=== PATIENT | male | born 1965 | race Caucasian/White ===

== ENCOUNTER 2020-01-01 01:21 | Outpatient (CLI) | payer BC, SELFPAY ==
[2020-01-01 19:05] LABS: SARS-CoV-2 RNA PCR Negative
== END 2020-01-01 01:22 | disposition home or self-care (01) ==
PROVIDERS: PCP Internal Medicine; Visit Provider Internal Medicine Gastroenterology
DX: Z01.812 Encounter for preprocedural laboratory examination (principal); Z20.828 Contact with and (suspected) exposure to other viral communicable diseases
CPT/HCPCS: 87635; C9803; U0003

== ENCOUNTER 2020-01-03 01:23 | Day surgery (SDC) | payer BC, SELFPAY ==
[2020-01-01 11:01] VITALS: BMI 23.0
--- NOTE | 2020-01-02 08:08 | WPDANESEPPF ---
Anes - Initial Pre Proc Eval Procedure: Operation Date: 01/03/20 10:30 Proposed Procedures p Screening Colonoscopy - Clifford Bah MD Date/Time: 01/02/20 08:08 Surgeon: Clifford Bah MD Pre Op Diagnosis: neoplasm screening, hx of polyps Patient Data Age: 54 Gender: M Height: 1.83 m Weight: 77 kg Allergies Allergy/AdvReac Type Severity Reaction Status Date / Time No Known Allergies Allergy Verified 01/03/20 09:49 Home Medications Medication Instructions Recorded Confirmed Type albuterol [Ventolin] 90 mcg INHALATION PRN PRN 01/01/20 01/01/20 History atorvastatin 20 mg PO DAILY 01/01/20 01/03/20 History beclomethasone dipropionate [Qvar 2 inh INHALATION BID 01/01/20 01/01/20 History RediHaler] enalapril maleate 10 mg PO DAILY 01/01/20 01/01/20 History Patient hx anesthesia problems: none Family hx anesthesia problems: none PMFSH Past Medical History Medical History Anxiety Asthma Hyperlipidemia Hypertension Migraine Family History Family History Other Cerebrovascular accident Diabetes mellitus Family history of allergic disorder Family history of cardiovascular disease Hypertension Social History Social History Smoking status: Never smoker Smoking end date: 03/07/89 Alcohol intake: current Drinks per week: 0 Alcohol use details: 1 DRINK PER MONTH Substance use: never Substance use type: does not use Living arrangements: with family Spiritual care concerns: No Anes - Eval Final PreProcedure Day of Procedure 01/02/20 08:08 Patient weight: normal Heart: regular rate and rhythm Lungs: clear to auscultation and normal air movement Airway: Mallampati scale class 1 Neurological: alert and oriented Last oral intake: >/= 8 hours ASA classification: II Emergent: no Anesthetic plan: proceed Anesthesia type and monitoring: general GIVS and standard monitoring Informed Consent: The patient's anesthetic plan and its attendant risks and benefits were discussed with the patient/family/POA. Questions were solicited and answers provided to the satisfaction of the patient/family/POA.
[2020-01-03 09:51] VITALS: BP 154/99; PULSE 113; RESP 12; TEMP 36.1; O2SAT 98
--- NOTE | 2020-01-03 10:01 | P.HP_ITS ---
History of Present Illness History of Present Illness Consent: Risks, benefits, and alternatives have been discussed and questions answered. Patient agrees to proceed with procedure. Chief complaint: neoplasm screening, hx of polyps Narrative: Thuan Morales Jr. is a 54 year old W male referred for screening colonoscopy secondary history of colonic polyps last colonoscopy over 3 years ago. Patient also family history of colon cancer in his mother diagnosed in her early 50s. Patient also has had a history of diverticulitis. He has some mild crampy lower abdominal discomfort and a couple loose stools over the past week. [facility] Past Medical History Medical History Anxiety Asthma Hyperlipidemia Hypertension Migraine Family History Family History Other Cerebrovascular accident Diabetes mellitus Family history of allergic disorder Family history of cardiovascular disease Hypertension Social History Social History Smoking status: Never smoker Smoking end date: 03/07/89 Alcohol intake: current Drinks per week: 0 Alcohol use details: 1 DRINK PER MONTH Substance use: never Substance use type: does not use Living arrangements: with family Spiritual care concerns: No Meds Home Medications and Allergies Home Medications Medication Instructions Recorded Confirmed Type albuterol [Ventolin] 90 mcg INHALATION PRN PRN 01/01/20 01/01/20 History atorvastatin 20 mg PO DAILY 01/01/20 01/03/20 History beclomethasone dipropionate [Qvar 2 inh INHALATION BID 01/01/20 01/01/20 History RediHaler] enalapril maleate 10 mg PO DAILY 01/01/20 01/01/20 History Allergies Allergy/AdvReac Type Severity Reaction Status Date / Time No Known Allergies Allergy Verified 01/03/20 09:49 Vital Signs Vital Signs - 24 hr 01/03/20 09:51 Temperature 36.1 C L Pulse Rate 113 H Respiratory Rate 12 Blood Pressure 154/99 H Pulse Oximetry 98 Exam Const: Orientation/consciousness: patient oriented x3 Resp: Auscultation: clear to auscultation bilaterally Cardio: Rate: regular rate Rhythm: regular rhythm Heart sounds: no murmurs GI: GI Palp: Yes Soft to palpation, No Tenderness to palpation present (GI), Yes No hepatosplenomegaly present and No Palpable mass present Auscultation: normal bowel sounds Neuro: General: patient oriented x3 and no focal motor deficits Extrem: General: no pedal edema Assessment and Plan Additional Plan Screening colonoscopy secondary history of colonic polyps and family history of colon cancer in his mother
[2020-01-03] MEDS: LACTATED RINGERS 1,000 ML 150 ML IV CONT (10:03)
[2020-01-03] MEDS: SIMETHICONE ORAL SUSPENSION 20 MG/0.3 ML 30 ML BOTTLE 0.6 ML IRRIGATION (10:44)
[2020-01-03 10:55] VITALS: BP 104/71; PULSE 82; RESP 16; O2SAT 98
[2020-01-03 11:05] VITALS: BP 105/67; PULSE 80; RESP 16; O2SAT 98
[2020-01-03 11:15] VITALS: BP 110/68; PULSE 80; RESP 17; O2SAT 98
== END 2020-01-03 11:40 | disposition home or self-care (01) ==
PROVIDERS: PCP Internal Medicine; Visit Provider Internal Medicine Gastroenterology
PROC: 0DJD8ZZ Inspection of Lower Intestinal Tract, Via Natural or Artificial Opening Endoscopic (ICD-10-PCS; CPT 45378; principal; 2020-01-03 10:30)
DX: Z12.11 Encounter for screening for malignant neoplasm of colon (principal); K57.30 Diverticulosis of large intestine without perforation or abscess without bleeding; K64.8 Other hemorrhoids; Z86.010 Personal history of colon polyps; I10 Essential (primary) hypertension; E78.5 Hyperlipidemia, unspecified; J45.909 Unspecified asthma, uncomplicated; F41.9 Anxiety disorder, unspecified
CPT/HCPCS: 45378; J7120

== ENCOUNTER 2021-06-23 18:42 | Observation (INO) | payer BC, SELFPAY ==
--- NOTE | ~2021-06-23 | CT_ITS ---
EXAMINATION: CT abdomen pelvis wo con DATE: 06/23/2021 20:48 INDICATION: r/o diverticulitis TECHNIQUE: Computed tomography (CT) of the abdomen and pelvis was performed without intravenous contr ast. Automated exposure control and iterative reconstruction technique were employed. The dose-length product was 394.66 mGy-cm. COMPARISON: 09/26/2017. FINDINGS: Lower thorax: Mild coronary artery calcification. Small hiatal hernia/esophageal diverticulum. Liver: Left lobe cyst. Biliary/Gallbladder: Gallbladder is normal. No bile duct dilation. Spleen: Normal. Pancreas: No mass or duct dilation. Adrenals:No mass. Kidneys: Bilateral stranding. Left midpole hypodensity, too small to characterize but statistically m ost likely represents a cyst. Punctate bilateral nonobstructing calculi. No hydronephrosis. GI tract: Multiple loops of fluid-filled dilated small bowel in the mid and right abdomen, with trans ition points between normal and abnormal bowel in the right lower quadrant. No large bowel dilation. Multiple diverticuli without diverticulosis. Normal appendix. Mesentery/Peritoneum: No ascites, mass, or free air. Innumerable prominent but subcentimeter mesenter ic lymph nodes. Retroperitoneum: No mass. Pelvis: Prostatomegaly.. Bones/Soft Tissues: Soft tissues and body wall unremarkable. No acute osseous finding. Additional Findings: None. IMPRESSION: Distal small bowel obstruction, site of obstruction suspected to be the right lower quadrant, without a specific mass or obstructing lesion identified. No CT evidence of diverticulitis. Reviewed, dictated and finalized at location K. IMPRESSION: Distal small bowel obstruction, site of obstruction suspected to be the right l ower quadrant, without a specific mass or obstructing lesion identified. No CT evidence of diverticulitis.
--- NOTE | ~2021-06-23 | XR_ITS ---
EXAMINATION: XR abdomen/kub 1V EXAM DATE: 06/24/2021 05:59 INDICATION: Small bowel ileus versus obstruction. TECHNIQUE: Frontal projection(s) of the abdomen for interpretation. Correlation is made to CT abdomen pelvis from yesterday. FINDINGS: There is expected amount of colonic stool and gas. No small bowel dilation, nonobstructiv e bowel gas pattern. There are no suspicious calcifications identified. There is no organomegaly suspected. There are mild bony degenerative changes. IMPRESSION: Unremarkable abdomen x-ray exam. Consider water-soluble small bowel follow-through. Reviewed, dictated and finalized at location A. IMPRESSION: Unremarkable abdomen x-ray exam. Consider water-soluble small claudia l follow-through.
--- NOTE | ~2021-06-23 | XR_ITS ---
EXAMINATION: XR sm bowel follow through WS EXAM DATE: 06/24/2021 11:38 INDICATION: Possible small bowel obstruction. TECHNIQUE: Audio Engineer radiograph was acquired. Omnipaque/water soluble solution administered for small aisha wel exam performed by radiologist Isak Hampton M.D.. Spot images of the terminal ileum were acquired. Pulsed dose reduction fluoroscopy was used with fluoroscopic time of 0.1 minutes. The DAP for this procedure was 4.9 Gycm2. A total of 15 images obtained for the exam. Correlation is made to CT scan ner from 06/23/2021. FINDINGS: Ileal and jejunal fold patterns are normal. Mildly dilated ileum, probably ileus. There i s no small bowel wall thickening or mass effect displacing small bowel. There are no intraluminal fi lling defects identified. Terminal ileum is normal in appearance. Contrast reached the colon 15-30 minutes, rapid transit time. IMPRESSION: Mildly dilated ileum with rapid transit time. Consider gastroenteritis. Reviewed, dictated and finalized at location A. IMPRESSION: Mildly dilated ileum with rapid transit time. Consider gastroenter itis.
[2021-06-23 18:45] VITALS: BP 149/91; PULSE 106; RESP 19; TEMP 36.6; O2SAT 98
--- NOTE | 2021-06-23 20:39 | ED.ABDPAIN ---
HPI - Abdominal Pain General Chief Complaint: Abdominal Pain Stated Complaint: abdominal pain with n/v/d Time Seen by Provider: 06/23/21 20:30 History of Present Illness HPI narrative: 56-year-old male presents the emergency room with a cute onset of nausea/vomiting and diarrhea accompanied with lower abdominal pain since yesterday morning. Patient describes the pain as a cramping sensation. Patient has a history of diverticulitis. Patient denies dysuria. Patient denies fever. Patient denies any alleviating or aggravating factors. Related Data Home Medications Medication Instructions Recorded Confirmed Qvar RediHaler 2 inh INHALATION BID 01/01/20 01/01/20 albuterol 90 mcg INHALATION PRN PRN 01/01/20 01/01/20 atorvastatin 20 mg PO DAILY 01/01/20 01/03/20 enalapril maleate 10 mg PO DAILY 01/01/20 01/01/20 Allergies Allergy/AdvReac Type Severity Reaction Status Date / Time No Known Allergies Allergy Verified 01/03/20 09:49 Review of Systems Review of Systems: CONSTITUTIONAL: Denies fever, chills, or sweats. EYES: Denies visual changes, redness, or discharge. ENT: Denies rhinorrhea, congestion, sore throat, or otalgia. CARDIOVASCULAR: Denies chest pain, palpitations, or edema. RESPIRATORY: Denies cough or dyspnea. GASTROINTESTINAL: Reports abdominal pain, nausea, vomiting, or diarrhea. GENITOURINARY: Denies dysuria or hematuria. SKIN: Denies rash or itching. MUSCULOSKELETAL: Denies back pain, joint pain, or myalgia. NEUROLOGIC: Denies headache, numbness, dizziness, or weakness. PSYCHIATRIC: Denies anxiety or depression. [facility] Past Medical History Medical History Anxiety Asthma Hyperlipidemia Hypertension Migraine Surgical History Surgical History (Updated 06/23/21 @ 23:20 by Pam Lucas APRN) No pertinent past surgical history Family History Family History Other Cerebrovascular accident Diabetes mellitus Family history of allergic disorder Family history of cardiovascular disease Hypertension Social History Social History Smoking status: Never smoker Smoking end date: 03/07/89 Alcohol intake: current Drinks per week: 0 Alcohol use details: 1 DRINK PER MONTH Substance use: never Substance use type: does not use Spiritual care concerns: No Exam Narrative: GENERAL: Well-appearing, well-nourished, and in no acute distress. HEAD: Normocephalic, atraumatic. EYES: PERRLA and EOMI. CHEST: Clear to auscultation. No respiratory distress. No wheezes rales or rhonchi HEART: Regular rate and rhythm. No murmur heard. Normal peripheral pulses. ABDOMEN: Soft, generalized tenderness, normal bowel sounds, no guarding EXTREMITIES: Normal range of motion. No edema. SKIN: Warm, dry, no rash. NEURO: No focal deficits. Alert and oriented x3. PSYCH: Normal mood and affect. Course Vital Signs Vital signs: Vital Signs Temperature 36.6 C 06/23/21 18:45 Pulse Rate 106 H 06/23/21 18:45 Respiratory Rate 19 06/23/21 18:45 Blood Pressure 149/91 H 06/23/21 18:45 Pulse Oximetry 98 06/23/21 18:45 Temperature 36.6 C 06/23/21 18:45 Pulse Rate 106 H 06/23/21 18:45 Respiratory Rate 19 06/23/21 18:45 Blood Pressure 149/91 H 06/23/21 18:45 Pulse Oximetry 98 06/23/21 18:45 MDM - Abdominal Pain Lab Data Result diagrams: 06/23/21 20:55 06/23/21 20:55 Labs: Lab Results 06/23/21 06/23/21 06/23/21 Range/Units 20:55 20:55 21:44 WBC 7.9 (4.5-10.0) K/mm3 RBC 5.55 (4.6-6.20) M/mm3 Hgb 16.7 (14.0-18.0) g/dL Hct 50.6 (42.0-52.0) % MCV 91.2 (80-100) fl MCH 30.1 (26-34) pg MCHC 33.0 (32-36) g/dl RDW 12.4 (11.5-14.5) % Plt Count 224 (150-375) k/mm3 MPV 9.4 (7.4-10.4) fl Immature Gran % (Auto) 0.4 (0-0.5) %
[2021-06-23] MEDS: SODIUM CHLORIDE 0.9% IV 1,000 ML 999 ML IV CONT (20:56)
[2021-06-23] MEDS: ONDANSETRON INJ 4 MG/2 ML VIAL IV PUSH (20:56)
[2021-06-23 21:02] LABS: Basophils Percent Auto 0.3 % (0.2-1.2); Eosinophils Percent Auto 0.1 % (0-4.4); Hematocrit 50.6 % (42.0-52.0); Hemoglobin 16.7 g/dL (14.0-18.0); Immature Granulocyte Absolute 0.03 K/mm3 (0.00-0.031); Immature Granulocyte Percent A 0.4 % (0-0.5); Lymphocytes Absolute Auto 0.79 K/mm3 (0.9-3.2); Mean Corpuscular Hemoglobin 30.1 pg (26-34); Mean Corpuscular Volume 91.2 fl (80-100); Mean Platelet Volume 9.4 fl (7.4-10.4); Monocytes Absolute Auto 0.9 K/mm3 (0.1-0.6); Monocytes Percent Auto 10.8 % (2.6-8.5); Neutrophils Absolute Auto 6.2 K/mm3 (1.3-6.7); Neutrophils Percent Auto 78.4 % (45.5-73.1); Platelet Count Result 224 k/mm3 (150-375); Red Blood Count 5.55 M/mm3 (4.6-6.20); Red Cell Distribution Width 12.4 % (11.5-14.5); White Blood Count 7.9 K/mm3 (4.5-10.0)
[2021-06-23 21:32] LABS: Alanine Aminotransferase 30 U/L (4-50); Albumin Level 5.1 g/dL (3.5-5.1); Alkaline Phosphatase 72 U/L (38-126); Anion Gap 10 mmol/L (8-16); Aspartate Amino Transferase 36 U/L (17-59); Blood Urea Nitrogen 14 mg/dL (9-20); Calcium 9.3 mg/dL (8.4-10.2); Carbon Dioxide 27 mmol/L (22-30); Chloride 96 mmol/L (98-107); Estimated CRCL calculation 81 ml/min; Estimated Glomerular Filt Rate > 60; Glucose 116 mg/dL (65-110); Potassium 4.1 mmol/L (3.4-5.0); Sodium 133 mmol/L (137-145)
[2021-06-23 21:59] LABS: Lactic Acid Reflex 0.8 mmol/L (0.7-2.1)
--- NOTE | 2021-06-23 23:17 | PM.IMHP ---
H&P: HPI History of Present Illness Date/Time: Patient was placed observation status for expected length of stay less than 23 hours for management, will plan to re-evaluate tomorrow for improvement. 06/23/21 23:17 Chief Complaint: Abdominal pain Narrative: Mr. Morales is a 56-year-old gentleman who presented emergency room with complaints of diarrhea, nausea, vomiting, and abdominal pain. Patient states that last evening around 2100 he began having diarrhea and then had a stool every hour until 4:00 a.m.. Patient states he was having pain across his lower abdomen that he described as a cramping sensation. Patient states he does have a history of diverticulitis and he thought that this was the problem he was having an decided to come to emergency room for further evaluation. Patient denies any fever or chills at home. Patient states that he has passed gas 1 time while in the emergency room. Patient denies any chest pain, shortness breast, lightheadedness, dizziness, syncopal, or near syncopal episodes. Patient denies any dysuria, hematuria, frequency, or urgency. Patient denies having any extensive abdominal surgeries states the only surgery he has had a his a colonoscopy. Patient states he has a known history of hypertension, dyslipidemia, and asthma. Patient states he has been taking all medications without any difficulty up until today. Review of Systems Review of Systems: A 12 point review of systems was completed patient all pertinent positive and negative per HPI the remainder are unremarkable. [facility] Past Medical History Medical History (Updated 06/23/21 @ 23:21 by Pam Lucas APRN) Anxiety Asthma Hyperlipidemia Hypertension Migraine Surgical History Surgical History (Updated 06/23/21 @ 23:20 by Pam Lucas APRN) No pertinent past surgical history Family History Family History Other Cerebrovascular accident Diabetes mellitus Family history of allergic disorder Family history of cardiovascular disease Hypertension Social History Social History Smoking status: Never smoker Smoking end date: 03/07/89 Alcohol intake: current Drinks per week: 0 Alcohol use details: 1 DRINK PER MONTH Substance use: never Substance use type: does not use Spiritual care concerns: No Meds Home Medications and Allergies Home Medications Medication Instructions Recorded Confirmed Type Qvar RediHaler 2 inh INHALATION BID 01/01/20 01/01/20 History albuterol 90 mcg INHALATION PRN PRN 01/01/20 01/01/20 History atorvastatin 20 mg PO DAILY 01/01/20 01/03/20 History enalapril maleate 10 mg PO DAILY 01/01/20 01/01/20 History Allergies Allergy/AdvReac Type Severity Reaction Status Date / Time No Known Allergies Allergy Verified 01/03/20 09:49 Vital Signs Vital Signs - 24 hr 06/23/21 18:45 Temperature 36.6 C Pulse Rate 106 H Respiratory Rate 19 Blood Pressure 149/91 H Pulse Oximetry 98 Exam Narrative: Constitutional: Patient is well-nourished in no acute distress. Patient is alert and oriented x3 HEENT: Moist mucous membranes. No scleral icterus. No lymphadenopathy. Neck: No carotid bruits noted no JVD noted Lungs: Lung sounds are clear to auscultation bilaterally. No accessory muscle use. No rhonchi, rales, or wheezes noted. Cardiovascular: Apical pulse is regular rate and rhythm. S1-S2 noted, no S3 or S4 noted. No gallops, murmurs, or rubs noted. Abdomen: Soft and round. Patient complains of mild tenderness to right upper quadrant with deep palpation. No palpable masses. Patient's bowel sounds are hyperactive at this time. Extremities: No edema. Nontender. Skin: No rashes or lesions. Warm and dry. Skin is intact. Neurological: No focal neurological deficits. Cranial nerves II-XII grossly intact. Psychiatric: Cooperative, appropriate mood, and af
[2021-06-24] VITALS (8 sets, daily range): BP systolic 115–143; BP diastolic 72–86; PULSE 70–80; RESP 14–18; TEMP 35.9–36.6; O2SAT 97–100; BMI 23.6
--- NOTE | 2021-06-24 01:46 | ADMGEN ---
This patient, Thuan Morales Jr., was admitted to Medical Room 243-01. Patient/family oriented to hospital policies and general routines including ID bracelet, bed and alarms, visiting hours, pain management, procedures, bathroom and other care routines, personal items, smoking policy, room service/diet, and visiting hours. Information on how to activate the Rapid Response Team has been discussed. Patient/Family are encouraged to report perceived risks to care and to ask questions if they do not understand what they are told or what they should do.
[2021-06-24] MEDS: SODIUM CHLORIDE 0.9% IV 1,000 ML 125 ML IV CONT ×2 (02:08→11:45)
[2021-06-24 04:50] LABS: Basophils Percent Auto 0.4 % (0.2-1.2); Eosinophils Percent Auto 0.4 % (0-4.4); Hematocrit 43.3 % (42.0-52.0); Hemoglobin 14.5 g/dL (14.0-18.0); Immature Granulocyte Absolute 0.02 K/mm3 (0.00-0.031); Immature Granulocyte Percent A 0.4 % (0-0.5); Lymphocytes Absolute Auto 0.97 K/mm3 (0.9-3.2); Lymphocytes Percent Auto 18.5 % (18.3-44.2); Mean Corpuscular HGB Conc 33.5 g/dl (32-36); Mean Corpuscular Hemoglobin 29.8 pg (26-34); Mean Corpuscular Volume 88.9 fl (80-100); Mean Platelet Volume 9.5 fl (7.4-10.4); Monocytes Absolute Auto 0.8 K/mm3 (0.1-0.6); Monocytes Percent Auto 15.5 % (2.6-8.5); Neutrophils Absolute Auto 3.4 K/mm3 (1.3-6.7); Neutrophils Percent Auto 64.8 % (45.5-73.1); Platelet Count Result 188 k/mm3 (150-375); Red Blood Count 4.87 M/mm3 (4.6-6.20); Red Cell Distribution Width 12.4 % (11.5-14.5); White Blood Count 5.2 K/mm3 (4.5-10.0)
[2021-06-24 05:01] LABS: Anion Gap 8 mmol/L (8-16); Blood Urea Nitrogen 13 mg/dL (9-20); Calcium 8.3 mg/dL (8.4-10.2); Carbon Dioxide 23 mmol/L (22-30); Chloride 102 mmol/L (98-107); Estimated CRCL calculation 89 ml/min; Estimated Glomerular Filt Rate > 60; Glucose 90 mg/dL (65-110); Magnesium 2.2 mg/dL (1.6-2.3); Potassium 3.8 mmol/L (3.4-5.0); Sodium 133 mmol/L (137-145)
[2021-06-24 05:49] LABS: Appearance Urine Clear (Clear); Bilirubin Urine Negative (Negative); Blood Urine 1+ (Negative); Color Urine Yellow (Yellow); Glucose Urine UA Negative (Negative); Ketones Urine 1+ mg/dL (Negative); Leukocyte Esterase Ur Negative LEU/UL (Negative); Nitrate Urine Negative (Negative); Protein Urine Negative (Negative); Specific Grav Ur 1.025 (1.001-1.035); Urobilinogen Urine 0.2 mg/dL (<2.0); pH Urine 5.5 (5.0-9.0)
[2021-06-24 05:51] LABS: Add Urine Microscopic? YES
[2021-06-24 05:52] LABS: Mucus Urine Rare /lpf; RBC Urine 0-2 /hpf (0-2); Squamous Epithelial Cell Urine Rare /hpf (Few); WBC Urine 0-3 /hpf
--- NOTE | 2021-06-24 09:45 | PM.IMPN ---
Progress Note: A&P Assessment and Plan (1) SBO (small bowel obstruction): Code(s): K56.609 - Unspecified intestinal obstruction, unspecified as to partial versus complete obstruction Status: Acute Assessment and Plan: Abd/Pel CT: Distal small bowel obstruction, site of obstruction suspected to the RLQ, without mass Abd Xray (06/24/21): Unremarkable abdomen x-ray exam. Consider water-soluble small bowel follow-through. Small bowel follow through: Mildly dilated ileum with rapid transit time. Consider gastroenteritis. General surgery consulted appreciate any further recommendations Consider NG tube if symptoms advance to vomiting Encourage activity Anti-emetic: Zofran 4mg IV Q6H PRN IV fluids: 125ml/hr NS Clear liquids with advancement as tolerated Consider pain medications (2) Hypertension: Code(s): I10 - Essential (primary) hypertension Status: Acute Assessment and Plan: BP 129/76 Hold PO enalapril 10mg PO daily PRN hydralazine with parameters while NPO Restart oral medications as indicated Trend BP Adjust therapy as indicated (3) Hyperlipidemia: Code(s): E78.5 - Hyperlipidemia, unspecified Status: Inactive Assessment and Plan: Hold home medications while NPO Restart medications as indicated LFTs are within normal range Time Spent With Patient Time with patient: Greater than 35 minutes Subjective Date/time seen: 06/24/21 0945 Interval history: 06/23/21 23:17 Narrative: Mr. Morales is a 56-year-old gentleman who presented emergency room with complaints of diarrhea, nausea, vomiting, and abdominal pain. Patient states that last evening around 2100 he began having diarrhea and then had a stool every hour until 4:00 a.m.. Patient states he was having pain across his lower abdomen that he described as a cramping sensation. Patient states he does have a history of diverticulitis and he thought that this was the problem he was having an decided to come to emergency room for further evaluation. Patient denies any fever or chills at home. Patient states that he has passed gas 1 time while in the emergency room. Patient denies any chest pain, shortness breast, lightheadedness, dizziness, syncopal, or near syncopal episodes. Patient denies any dysuria, hematuria, frequency, or urgency. Patient denies having any extensive abdominal surgeries states the only surgery he has had a his a colonoscopy. Patient states he has a known history of hypertension, dyslipidemia, and asthma. Patient states he has been taking all medications without any difficulty up until today. 06/24/21 0945 Patient is doing well today. Patient went for small-bowel follow-through and no obstruction was noted. Patient denies any abdominal pain. Chest pain, shortness of breath, nausea, vomiting, sweats, fevers, chills. Patient walks independently and has no complaints. Patient was started on clear liquids and advance diet as tolerated. Review of Systems Review of Systems: All systems reviewed & are unremarkable except as noted in HPI and below Exam Const: General: cooperative, healthy appearing, no acute distress, well developed, alert and awake Nutritional Appearance: well nourished Orientation/consciousness: patient oriented x3 Limitations: no limitations HENMT: Head: normal to inspection Ears: hearing grossly normal bilaterally General nose exam: Normal external nose present Mouth: Yes Normal oral and palatal mucosa present, Yes lip normal and Yes tongue normal Teeth and gingiva: abnormal tooth and associated gingiva and poor dentition Eyes: General: appearance normal, both eyes and all related structures Neck: Neck: normal visual inspection, full ROM, trachea midline and supple Chest: Chest palpation & inspection: normal inspection of the chest Resp: Effort & Inspection: normal respiratory effort and able to speak in complete sentences Auscultation:
--- NOTE | 2021-06-24 10:18 | PM.CNGS ---
Assessment and Plan Assessment and plan (1) SBO (small bowel obstruction): Code(s): K56.609 - Unspecified intestinal obstruction, unspecified as to partial versus complete obstruction Status: Acute Assessment and Plan: CT scan reviewed and discussed with the patient in detail. There is evidence of a small bowel obstruction. The patient has no history of abdominal surgeries, although he does have a history of diverticulitis that could theoretically cause some adhesions. His presentation and complaints over the past few days are more consistent with possibly gastroenteritis with an ileus, although there is a transition point noted on CT. He has shown significant clinical improvement. Abdominal pain and nausea have subsided. His abdominal exam is benign. He is passing lots of gas and his plain films this morning showed a normal bowel gas pattern. We will go ahead with a Gastrografin small bowel follow through today to further evaluate the small bowel obstruction. If the contrast moves through to the colon without any obstruction, then we will start a clear liquid diet. For now, will continue NPO status and IV fluids. Will monitor with serial abdominal exams. Thank you for allowing us to see the patient in consultation and we will continue to follow along with you. (2) Hypertension: Code(s): I10 - Essential (primary) hypertension Status: Acute (3) Asthma: Code(s): J45.909 - Unspecified asthma, uncomplicated Status: Inactive Additional Plan I have discussed the patient's case and plan of care with Dr. Garcia. History of Present Illness Consult details Consult date: 06/24/21 Reason for consult: other (Small-bowel obstruction) Requesting physician: Justyn Browning APRN Narrative: This is a 56-year-old male with no previous abdominal surgeries, who presented to the emergency department with complaints of lower abdominal pain, vomiting, and diarrhea. He reports that he woke up 2 days ago with nausea. Later that evening, he developed diarrhea around 9:00 p.m.. He reports having frequent diarrhea throughout the night almost hourly. Denies any blood in his stool. His diarrhea began to slow down the following morning, but his nausea continued. He began vomiting yesterday, and reportedly vomited 4 times. He does report most of his emesis was clear, but his last episode of vomiting appeared bilious. He reports bloating and also developed lower abdominal pain yesterday evening. He reports having 2 previous episodes of diverticulitis, and thought this may be what was causing his symptoms. Therefore, he presented to the ER for further evaluation. CT scan of the abdomen and pelvis showed evidence of a small-bowel obstruction, and incidentally noted prostatomegaly, a small hiatal hernia, and an esophageal diverticulum. His labs were unremarkable. The patient was admitted to the hospitalist service. Our service was consulted for the small-bowel obstruction. NG tube was deferred because he was no longer having any vomiting. The patient is seen this morning on the medical floor. He reports feeling much better. He reports his nausea and abdominal pain has completely resolved. He has not vomited since 5:00 p.m. yesterday. He reports passing lots of flatus this morning and he did have 1 liquid bowel movement in the ER last night. He denies any other complaints at this time. He denies any previous surgeries. He denies a history of a small-bowel obstruction. He believes he had diverticulitis on 2 occasions and was prescribed antibiotics from our hospital. In review of his records, I only see 1 episode in September of 2017 when he was seen in the ER for uncomplicated sigmoid diverticulitis and prescribed oral antibiotics and discharged home. He does have a family history of colon cancer in his mother, therefore he has four colonoscopies. His last colonoscopy was December of 2019 and showed diverticulosis in the sigmoid colon and
--- NOTE | 2021-06-24 11:00 | PCCCNOTE ---
On 06/24/21, the student, [Syeda Bazzi ], provided care and completed [facility] documentation on this patient. I have reviewed the student's documentation and agree with the findings.
[2021-06-24] MEDS: FLUTICASONE PROP 44 MCG (*SP) 10.6 GM 2 PUFF INHALATION (20:31)
[2021-06-25 00:59] VITALS: BP 113/66; PULSE 76; RESP 14; TEMP 36.5; O2SAT 98
[2021-06-25] MEDS: SODIUM CHLORIDE 0.9% IV 1,000 ML 125 ML IV CONT (03:25)
[2021-06-25 05:33] LABS: Basophils Percent Auto 0.2 % (0.2-1.2); Eosinophils Absolute Auto 0.1 K/mm3 (0-0.3); Eosinophils Percent Auto 1.8 % (0-4.4); Hematocrit 43.3 % (42.0-52.0); Hemoglobin 13.9 g/dL (14.0-18.0); Immature Granulocyte Absolute 0.01 K/mm3 (0.00-0.031); Immature Granulocyte Percent A 0.2 % (0-0.5); Lymphocytes Absolute Auto 1.21 K/mm3 (0.9-3.2); Lymphocytes Percent Auto 26.6 % (18.3-44.2); Mean Corpuscular HGB Conc 32.1 g/dl (32-36); Mean Corpuscular Hemoglobin 29.9 pg (26-34); Mean Corpuscular Volume 93.1 fl (80-100); Mean Platelet Volume 9.7 fl (7.4-10.4); Monocytes Absolute Auto 0.8 K/mm3 (0.1-0.6); Monocytes Percent Auto 17.6 % (2.6-8.5); Neutrophils Absolute Auto 2.4 K/mm3 (1.3-6.7); Neutrophils Percent Auto 53.6 % (45.5-73.1); Platelet Count Result 181 k/mm3 (150-375); Red Blood Count 4.65 M/mm3 (4.6-6.20); Red Cell Distribution Width 12.7 % (11.5-14.5); White Blood Count 4.6 K/mm3 (4.5-10.0)
[2021-06-25 05:55] LABS: Alanine Aminotransferase 21 U/L (4-50); Albumin Level 3.5 g/dL (3.5-5.1); Alkaline Phosphatase 48 U/L (38-126); Anion Gap 5 mmol/L (8-16); Aspartate Amino Transferase 28 U/L (17-59); Bilirubin,Total 0.6 mg/dL (0.2-1.3); Blood Urea Nitrogen 10 mg/dL (9-20); Calcium 8.2 mg/dL (8.4-10.2); Carbon Dioxide 26 mmol/L (22-30); Chloride 106 mmol/L (98-107); Estimated CRCL calculation 89 ml/min; Estimated Glomerular Filt Rate > 60; Glucose 79 mg/dL (65-110); Magnesium 2.3 mg/dL (1.6-2.3); Potassium 4.1 mmol/L (3.4-5.0); Sodium 137 mmol/L (137-145)
[2021-06-25 06:09] VITALS: BP 119/71; PULSE 83; RESP 14; TEMP 36.4; O2SAT 100
[2021-06-25] MEDS: FLUTICASONE PROP 44 MCG (*SP) 10.6 GM 2 PUFF INHALATION (08:18)
[2021-06-25] MEDS: ATORVASTATIN 20 MG TABLET PO (08:18)
[2021-06-25] MEDS: ENALAPRIL MALEATE 10 MG TABLET PO (08:18)
--- NOTE | 2021-06-25 09:00 | PM.DS ---
DS: Admitting Diagnosis Discharge Date 06/25/21 0900 Admitting Diagnosis Small bowel obstruction DS: Discharge Diagnosis Discharge Diagnosis (1) SBO (small bowel obstruction): Code(s): K56.609 - Unspecified intestinal obstruction, unspecified as to partial versus complete obstruction Status: Acute Assessment and Plan: Abd/Pel CT: Distal small bowel obstruction, site of obstruction suspected to the RLQ, without mass Abd Xray (06/24/21): Unremarkable abdomen x-ray exam. Consider water-soluble small bowel follow-through. Small bowel follow through: Mildly dilated ileum with rapid transit time. Consider gastroenteritis. General surgery consulted appreciate any further recommendations Consider NG tube if symptoms advance to vomiting Encourage activity Anti-emetic: Zofran 4mg IV Q6H PRN IV fluids: 125ml/hr NS diet was advanced to low fiber Consider pain medications (2) Hypertension: Code(s): I10 - Essential (primary) hypertension Status: Acute Assessment and Plan: BP 119/71 Restart enalapril 10mg PO daily PRN hydralazine with parameters while NPO Restart oral medications as indicated Trend BP Adjust therapy as indicated (3) Hyperlipidemia: Code(s): E78.5 - Hyperlipidemia, unspecified Status: Inactive Assessment and Plan: Restart home medications while NPO Restart medications as indicated LFTs are within normal range DS: Summary Hospital Course Hospital Course: Patient is a 56 year old male with a past medical history of HLD, HTN, and asthma that presented to the ED with dairrhea, nausea, vomiting, and abdominal pain. CT showed small bowel obstruction. General surgery was consulted. Abd xray from 06/24/21 was unremarkable. Small bowel follow through was performed which did not show any further obstruction. IV were continued and diet was increased to clear liquids with advancement as tolerated. Patient has been able to advance to low fiber diet. He has been able to tolerate his diet. Patient states that he was having lot of diarrhea however he stated that the general surgeon told him that that would be around for a while. Patient is ready for discharge, and is stable with labs and vital signs. Status at Discharge Functional status at discharge: independent ambulation Overall status at discharge: patient is progressing back to baseline Time Spent with Patient Time attestation: Total time spent providing and/or coordinating discharge services: 35 minutes Time spent: Greater than 30 minutes Specific discharge activities: Diagnostic testing, chart review, developing a treatment plan, education, care coordination documentation, physical exam, result review Exam Const: General: cooperative, healthy appearing, no acute distress, well developed, alert and awake Nutritional Appearance: well nourished Orientation/consciousness: patient oriented x3 Limitations: no limitations HENMT: Head: normal to inspection Ears: hearing grossly normal bilaterally General nose exam: Normal external nose present Mouth: Yes Normal oral and palatal mucosa present, Yes lip normal and Yes tongue normal Teeth and gingiva: abnormal tooth and associated gingiva and poor dentition Eyes: General: appearance normal, both eyes and all related structures Neck: Neck: normal visual inspection, full ROM, trachea midline and supple Chest: Chest palpation & inspection: normal inspection of the chest Resp: Effort & Inspection: normal respiratory effort and able to speak in complete sentences Auscultation: clear to auscultation bilaterally Cardio: Jugular venous distension: no JVD Rate: regular rate Rhythm: regular rhythm Heart sounds: S1 normal heart sound present and S2 normal heart sound present Peripheral pulses: Peripheral pulses 2+ throughout GI: Inspection: normal to inspection Auscultation: normal bowel sounds Skin: General skin exam: normal colo
[2021-06-25 10:05] VITALS: BP 129/77; PULSE 76; RESP 14; TEMP 36.9; O2SAT 97
--- NOTE | 2021-06-25 10:34 | PCCCNOTE ---
On 06/25/21, the student, [Soraya Jerry ], provided care and completed [facility] documentation on this patient. I have reviewed the student's documentation and agree with the findings.
--- NOTE | 2021-06-25 12:35 | PM.PNGS ---
Progress Note: A&P Assessment and Plan (1) SBO (small bowel obstruction): Code(s): K56.609 - Unspecified intestinal obstruction, unspecified as to partial versus complete obstruction Status: Acute Assessment and Plan: [place] this is more likely related to gastroenteritis. Clinically improving. SBFT showed contrast reaching the colon quickly and no evidence of an obstruction. Tolerating a low fiber diet and bowels are moving. Abd exam benign. Okay from our standpoint to discharge the patient today. Would recommend he follow-up with his PCP. No follow-up with surgery needed. (2) Hypertension: Code(s): I10 - Essential (primary) hypertension Status: Acute (3) Asthma: Code(s): J45.909 - Unspecified asthma, uncomplicated Status: Inactive Additional Plan I have discussed the patient's case and plan of care with Dr. Garcia. Subjective Subjective Date/Time Seen: 06/25/21 08:41 Patient reports: no new complaints, feels better, tolerating a regular diet, flatus, bowel movement and afebrile Interval history: Patient seen and examined. Reports feeling much better. Denies any abdominal pain, nausea, vomiting, or bloating. He is having loose stools, likely from the gastrografin study. Tolerating a low fiber diet. No other complaints at this time. Review of Systems Review of Systems: All systems reviewed & are unremarkable except as noted in HPI and below Exam Const: General: comfortable, no acute distress and awake GI: Inspection: normal to inspection and non-distended GI Palp: Yes Soft to palpation, No Tenderness to palpation present (GI), No Guarding due to palpation present (GI) and No Rebound tenderness present Auscultation: normal bowel sounds Psych: Insight: Good insight present (Psych) Judgement: Good judgement present (Psych) Objective Data Vital Signs Vital Signs: Vital Signs - 24 hr 06/24/21 14:16 06/24/21 18:04 06/24/21 20:00 Temperature 97.5 F L 97.9 F Pulse Rate 75 75 75 Respiratory Rate 16 14 14 Blood Pressure 136/77 126/84 Pulse Oximetry 99 98 98 06/24/21 21:13 06/25/21 00:59 06/25/21 06:09 Temperature 97.9 F 97.7 F 97.6 F Pulse Rate 70 76 83 Respiratory Rate 16 14 14 Blood Pressure 115/72 113/66 119/71 Pulse Oximetry 97 98 100 06/25/21 10:05 Temperature 98.4 F Pulse Rate 76 Respiratory Rate 14 Blood Pressure 129/77 Pulse Oximetry 97 Intake/Output Intake/Output: Intake & Output 06/22/21 06/23/21 06/24/21 06/25/21 23:59 23:59 23:59 23:59 Intake Total 1000 3600 850 Output Total 200 Balance 1000 3400 850 Meds/Results Medications: Active Medications Generic Name Dose Route Start Last Admin Trade Name Freq PRN Reason Stop Dose Admin Albuterol 1 puff 06/24/21 07:19 Albuterol Sulfate (*Sp) Aerosol 1 Puff INHALATION PRN PRN Wheezing Atorvastatin Calcium 20 mg 06/25/21 09:00 06/25/21 08:18 Atorvastatin 20 Mg Tablet PO 20 mg DAILY CHRIS Administration Enalapril Maleate 10 mg 06/25/21 09:00 06/25/21 08:18 Enalapril Maleate 10 Mg Tablet PO 10 mg DAILY CHRIS Administration Fluticasone Propionate 2 puff 06/24/21 20:00 06/25/21 08:18 Fluticasone Prop 44 Mcg (*Sp) 10.6 Gm INHALATION 2 puff Q12HRT CHRIS Administration Sodium Chloride 1,000 mls @ 125 mls/hr 06/23/21 22:50 06/25/21 03:25 Normal Saline Iv IV CONT 125 mls/hr .Q8H CHRIS Administration Ondansetron HCl 4 mg 06/23/21 23:15 Ondansetron Inj 4 Mg/2 Ml Vial IV PUSH Q6H PRN Nausea And Vomiting Radiology Results: ITS Impressions Abdomen/Pelvis CT 06/23/21 21:05 IMPRESSION: Distal small bowel obstruction, site of obstruction suspected to be the right lower quadrant, without a specific mass or obstructing lesion identified. No CT evidence of diverticulitis. Abdomen X-Ray 06/24/21 06:59 IMPRESSION: Unremarkable abdomen x-ray exam. Consider water-soluble small bowel follow-through. Small Bowel X-R
[2021-06-25 12:40] VITALS: BP 123/76; PULSE 72; RESP 16; TEMP 36.6; O2SAT 99
== END 2021-06-25 13:35 | disposition home or self-care (01) ==
LOC: ANHED 23:03 → ANH2MED 06-24 11:38
PROVIDERS: Nurse Practitioner Adult Health; Admitting Provider Internal Medicine; Emergency Provider Nurse Practitioner Family; PCP Internal Medicine; Visit Provider Nurse Practitioner
DX: K56.609 Unspecified intestinal obstruction, unspecified as to partial versus complete obstruction (principal); K42.9 Umbilical hernia without obstruction or gangrene; I10 Essential (primary) hypertension; E78.5 Hyperlipidemia, unspecified; J45.909 Unspecified asthma, uncomplicated; F41.9 Anxiety disorder, unspecified; Z79.51 Long term (current) use of inhaled steroids
CPT/HCPCS: 36415; 74018; 74176; 74250; 80048; 80053; 81001; 83605; 83735; 85025; 94640; 96361; 96365; 96375; 96376; 99285; A9270; G0378; J0131; J2405; J7030

== ENCOUNTER 2023-12-10 13:27 | Emergency (ER) | payer BC, SELFPAY ==
[2023-12-10] VITALS (14 sets, daily range): BP systolic 122–138; BP diastolic 77–84; PULSE 68–78; RESP 9–16; TEMP 36.6–36.7; O2SAT 97–100
--- NOTE | 2023-12-10 14:19 | ED.ASTHMA ---
HPI - Asthma General Chief Complaint: Asthma Stated Complaint: ASTHMA Time Seen by Provider: 12/10/23 14:17 History of Present Illness HPI Narrative: Patient with history of asthma has been renovating his house so there have been a lot of dust, and then moved into with his daughter who has 2 cats which he is allergic to, and is also living next to a farm that has a lot of hay, all of which are triggers for his asthma. Has been using his inhaler every 2 hours. Related Data Home Medications Medication Instructions Recorded Confirmed albuterol 90 mcg/actuation aerosol 90 mcg inhalation PRN PRN Wheezing 01/01/20 06/24/21 inhaler atorvastatin 20 mg tablet 20 mg PO DAILY 01/01/20 06/24/21 beclomethasone dipropionate 40 2 inh inhalation BID 01/01/20 06/24/21 mcg/actuation HFA breath activated aerosol (Qvar RediHaler) enalapril maleate 10 mg tablet 10 mg PO DAILY 01/01/20 06/24/21 Allergies Allergy/AdvReac Type Severity Reaction Status Date / Time No Known Allergies Allergy Verified 12/10/23 13:29 Review of Systems Review of Systems: All systems reviewed & are unremarkable except as noted in HPI and below PMFSH Past Medical History Medical History (Updated 12/10/23 @ 14:23 by Louise Márquez MD) Anxiety Asthma History of diverticulitis of colon Hyperlipidemia Hypertension Migraine Surgical History Surgical History History of colonoscopy Last colonoscopy 12/2019 - findings of internal hemorrhoids and sigmoid diverticulosis. No pertinent past surgical history Family History Family History Father Cerebrovascular accident Hypertension Grandparent Diabetes mellitus Grandparent Family history of cardiovascular disease Mother Hypertension Other Family history of allergic disorder Social History Social History Smoking status: Never smoker Smoking end date: 03/07/89 Alcohol intake: current Drinks per week: 1 Alcohol use details: 1 DRINK PER MONTH Substance use: never Substance use type: does not use Living arrangements: with family Additional living arrangements comments: Lives with his . They have children that are grown and out of the household. 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 Gender identity (if verbalized by the patient): Male Spiritual care concerns: No Exam Narrative: EXAMINATION OF ORGAN SYSTEMS/BODY AREAS: Constitutional: Vital signs per nursing GENERAL:[No acute distress, non-toxic appearing.] HEAD: Normal with no signs of head trauma. EYES: EOMI, conjunctiva normal ENT: Hearing grossly intact LUNGS: Nonlabored breathing. Speaking Full sentences. Some slight end expiratory wheezing all lung ruiz HEART: [Regular rate and rhythm] ABD: [Soft], [nontender to palpation] EXT: Normal range of motion SKIN: [No rashes or lesions.] NEURO: [Alert and oriented x 3. No gross focal sensory or strength deficits.] PSYCH: Normal affect Course Vital Signs Vital signs: Vital Signs Temperature 97.9 F 12/10/23 13:30 Pulse Rate 70 12/10/23 13:30 Respiratory Rate 16 12/10/23 13:30 Blood Pressure 137/84 12/10/23 13:30 Pulse Oximetry 97 12/10/23 13:30 Temperature 98.1 F 12/10/23 15:01 Pulse Rate 73 12/10/23 15:46 Respiratory Rate 14 12/10/23 15:46 Blood Pressure 138/78 12/10/23 15:46 Pulse Oximetry 100 12/10/23 15:46 Oxygen Delivery Room Air 12/10/23 14:27 MDM - Asthma MDM Narrative Medical decision making narrative: ED COURSE AND MEDICAL DECISION MAKIN-year-old male with 2 days of acute dyspnea and wheezing likely due to acute asthma exacerbation based on history and exam. Patient is hemodynamically stable. Nebulizer treatments are started and steroids give
[2023-12-10] MEDS: predniSONE 20 MG TABLET 40 MG PO (14:25)
[2023-12-10] MEDS: IPRATROPIUM BR 0.02% INH SOLN 0.5 MG/2.5 ML VIAL 1 MG INHALATION (14:33)
[2023-12-10] MEDS: ALBUTEROL SULFATE NEB 2.5 MG/3 ML INH 15 MG INHALATION (14:34)
== END 2023-12-10 15:51 | disposition home or self-care (01) ==
LOC: ANHED 14:32
PROVIDERS: Emergency Provider Emergency Medicine; PCP Internal Medicine
DX: J45.901 Unspecified asthma with (acute) exacerbation (principal); I10 Essential (primary) hypertension; E78.5 Hyperlipidemia, unspecified; Z87.891 Personal history of nicotine dependence
CPT/HCPCS: 94640; 99283; J7512

== ENCOUNTER 2024-01-02 14:30 | Emergency (ER) | payer BC, SELFPAY ==
[2024-01-02] VITALS (8 sets, daily range): BP systolic 132–148; BP diastolic 79–94; PULSE 73–84; RESP 17–20; TEMP 36.6; O2SAT 97–100
[2024-01-02] MEDS: IPRATROPIUM 0.5 MG/ALBUTEROL SULFATE 2.5 MG AMPUL.NEB 3 ML INHALATION (16:31)
[2024-01-02] MEDS: ALBUTEROL SULFATE NEB 2.5 MG/3 ML INH 10 MG INHALATION (18:49)
[2024-01-02] MEDS: IPRATROPIUM BR 0.02% INH SOLN 0.5 MG/2.5 ML VIAL 1 MG INHALATION (18:49)
--- NOTE | 2024-01-02 20:04 | ED_ITS ---
HPI - Asthma General Chief Complaint: Asthma Stated Complaint: asthma Time Seen by Provider: 01/02/24 16:08 History of Present Illness HPI Narrative: Patient is a 58-year-old male who presents ER with shortness of breath. Has history of asthma. Recently seen for this and finished a steroid burst. He is living at his daughter's home of a remodel and there are a lot of cats and they are in a field where the harvest is being performed and he thinks that this is agitating his lungs. No fevers or chills. Related Data Home Medications Medication Instructions Recorded Confirmed albuterol 90 mcg/actuation aerosol 90 mcg inhalation PRN PRN Wheezing 01/01/20 06/24/21 inhaler atorvastatin 20 mg tablet 20 mg PO DAILY 01/01/20 06/24/21 beclomethasone dipropionate 40 2 inh inhalation BID 01/01/20 06/24/21 mcg/actuation HFA breath activated aerosol (Qvar RediHaler) enalapril maleate 10 mg tablet 10 mg PO DAILY 01/01/20 06/24/21 Allergies Allergy/AdvReac Type Severity Reaction Status Date / Time No Known Allergies Allergy Verified 01/02/24 14:35 Review of Systems Constitutional: Constitutional: Reports no additional constitutional complaints ENT: Reports system reviewed and no additional complaints, except as documented Cardiovascular: Cardiovascular: Reports no additional cardiovascular complaints Respiratory: Respiratory: Denies cough, Reports dyspnea and Reports wheezing PMFSH Past Medical History Medical History (Updated 01/02/24 @ 20:08 by Cale Green MD) Anxiety Asthma History of diverticulitis of colon Hyperlipidemia Hypertension Migraine Surgical History Surgical History History of colonoscopy Last colonoscopy 12/2019 - findings of internal hemorrhoids and sigmoid diverticulosis. No pertinent past surgical history Family History Family History Father Cerebrovascular accident Hypertension Grandparent Diabetes mellitus Grandparent Family history of cardiovascular disease Mother Hypertension Other Family history of allergic disorder Social History Social History Smoking status: Never smoker Smoking end date: 03/07/89 Alcohol intake: current Drinks per week: 1 Alcohol use details: 1 DRINK PER MONTH Substance use: never Substance use type: does not use Living arrangements: with family Additional living arrangements comments: Lives with his . They have children that are grown and out of the household. 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 Gender identity (if verbalized by the patient): Male Spiritual care concerns: No Exam Narrative: GENERAL: Well-appearing, well-nourished, and in no acute distress. HEAD: Normocephalic, atraumatic. ENT: Mucous membranes moist. CHEST: Clear to auscultation with scant wheezing. No respiratory distress. HEART: Regular rate and rhythm. Normal peripheral pulses. ABDOMEN: Soft, nontender, nondistended. EXTREMITIES: Normal range of motion. No edema. SKIN: Warm, dry, no rash. NEURO: Alert and oriented x3. PSYCH: Normal mood and affect. Course Course Emergency Course: Increased wheezing with 1st nebulizer treatment so 2nd treatment was ordered. After 2nd treatment lungs are clear and patient feels better. Discharged home with steroids. Patient does not need a refill of his inhaler. Vital Signs Vital signs: Vital Signs Temperature 97.9 F 01/02/24 14:31 Pulse Rate 78 01/02/24 14:31 Respiratory Rate 17 01/02/24 14:31 Blood Pressure 143/91 H 01/02/24 14:31 Pulse Oximetry 97 01/02/24 14:31 Oxygen Delivery Room Air 01/02/24 14:31 Temperature 97.9 F 01/02/24 14:31 Pulse Rate 74 01/02/24 18:49 Respiratory Rate 20 01/02/24 18:49 Blood Pressure 132/79 01/02/24 16:44 Pulse Oximetry 100 01/02/24 16:44 Oxygen Delivery Room Air 01/02/24 14:51 Discharge Plan Discharge Clinical Impression: Asthma Patient Disposition: Home, Self-Care Condition: Stable Instructions: Asthma (ED) Additional Instructions: Please return to the emergency department if you develop severe and persistent chest pain, difficulty breathing, dizziness, leg swelling or if you are coughing up blood as these can be signs of a medical emergency. Please call your doctor for a follow up appointment to determine the need for further testing. Prescriptions: New prednisone 50 mg tablet 50 mg PO DAILY Qty: 7 0RF No Action prednisone 20 mg tablet 40 mg PO DAILY 4 Days Qty: 8 0RF albuterol sulfate 90 mcg/actuation HFA aerosol inhaler 2 puff inhalation QID PRN (Reason: shortness of breath or wheezing) Qty: 8.5 0RF atorvastatin 20 mg tablet 20 mg PO DAILY enalapril maleate 10 mg tablet 10 mg PO DAILY albuterol 90 mcg/actuation Aerosol 90 mcg INHALATION PRN PRN (Reason: Wheezing) Qvar RediHaler 40 mcg/actuation HFA aerosol breath activated 2 inh INHALATION BID Follow-up/Referrals: Janice,Chester Cano MD [Primary Care Provider] - 1 Week
== END 2024-01-02 20:27 | disposition home or self-care (01) ==
PROVIDERS: Emergency Provider Emergency Medicine; PCP Internal Medicine
DX: J45.909 Unspecified asthma, uncomplicated (principal); F41.9 Anxiety disorder, unspecified; E78.5 Hyperlipidemia, unspecified; I10 Essential (primary) hypertension
CPT/HCPCS: 94640; 99284

== ENCOUNTER 2024-12-19 00:56 | Day surgery (SDC) | payer BC, SELFPAY ==
--- OUTSIDE RECORDS SUMMARY | 2008-12-18 19:00 | XMS_ITS | Continuity of Care Document ---
Author Organization [facility] Address [address] [place] [address] [address] [place] [address] Phone Care Team Providers Care Postie Name Role Phone Petit OD, Teofilo Unavailable Unavailable Procedures Procedure Date CL Initial - Ciba Disp W/BW Soft 2008 [facility] Eye Exam & Treatment Refraction CL Replacement - Other Lens [employer] CL Replacement - Vistakon Disp W/BW Soft Sales Tax No Charge Contact Lens Check Eye Exam, New Patient Refraction Advance Directives Directive Yes / No Effective Date File Name No Information Encounters Encounter Description Practice Location Reason(s) For Visit Diagnoses Date Provider Providers Copied on Encounter [facility], [address] [place] [address] [address], [place], [place], [id number], tel:[phone] [facility] No Information 200 9 Petit OD Teofilo. [address], [place], [address], [place]. tel:[phone] Referring Provider: Teofilo Petit OD [address], [place], [address]. tel:[phone] [facility] Eye [facility], [address] [place] [address] [address], [place], [place], [id number], tel:[phone] [facility] No Information 200 9 Petit OD Teofilo. [address], [place], [place], [facility], . tel:[phone] [facility] Eye [facility], [address] [place] [address] [address], [place], [place], [id number], tel:[phone] [facility] No Information Mar-3 1-200 9 Petit OD Teofilo. [address] [facility] , [address], [place], [place], [facility], . tel:[phone] [facility] Eye [facility], [address] [place] [address] [address], [place], [place], [id number], tel:[phone] [facility] No Information Rajinder-0 8-200 8 Petit OD Teofilo. [address] [facility] , [address], [place], [place], [facility], . tel:[phone] [facility], [address] [place] [address] [address], [place], [place], [id number], tel:[phone] [facility] No Information Darío-1 9-200 8 Petit OD Teofilo. [address] [facility] , [address], [place], [place], [facility], . tel:[phone] [facility], [address] [place] [address] [address], [place], [place], [id number], tel:[phone] [facility] No Information Darío-0 5-200 8 Petit OD Teofilo. [address] [facility] , [address], [place], [place], [facility], . tel:[phone] Family History Family Member Type Diagnosis Age At Onset No Information Payers Payer name Insurance type Covered libertarian ID Authoriza tion(s) No Information Social History Type Description Quantity Date Captured Comments Sex Male Smoking Status No Information Chief Complaint And Reason For Visit No Information Reason For Referral Reason For Referral No Information History Of Present Illness Encounter Date Complaint History Of Prese nt Illness No Information Functional Status Date Functional Assessmen t No Information Instructions Date Instruction Additional Infor mation No Information Assessments Type Assessment Date No Information Patient Care Teams Name Effective Dates (start - stop) Status Members No Information
[2024-12-11 13:05] VITALS: BMI 23.9
--- OUTSIDE RECORDS SUMMARY | 2024-12-19 00:59 | XMS_ITS | Clinical Summary ---
Author Organization [facility] Address [address] [address] Care Team Providers Care Sports Photographer Name Role Phone Unavailable Primary Care Provider Unavailabl e Source Comments [facility],non-owned Affiliates and Associated Physician Practices is amultiple site organization consisting of ambulatory clinics and hospital sitesin [place], [place], [place] and [place]. This disclosure is being madepursuant to the Care Everywhere program and may not contain all information available regarding this patient. Last updated 17.[facility] Allergies No known active allergies Immunizations Immunization Administration Dates Next Due INFLUENZA VACCINE, QUADR. (F LUZONE; FLULAVAL; FLUARIX; AFLURIA QUADRIVALENT; 6MO+), 0.5 ML (IIV4) 11/14/2019,01/05/2019 iNFLUENZA VACCINE, RECOM-HEREDIA, QUADR. (FLUBLOCK QUADRIVALENT; 18Y+) (RIV4) 12/23/2017 Social History Tobacco Use Types Packs/Day Years Used Date Smoking Tobacco: Never Assessed Sex and Gender Information Value Date Recorded Sex Assigned at Not on file Legal Sex Male 6:10 PM CDT Gender Identity Not on file Sexual Orientation Not on file Plan of Treatment Health Maintenance Due Date Last Done Comments COLOGUARD (AGES 45-75) - COL ON CA SCREENING 1966 COLON MONITORING 1966 COLONOSCOPY - COLON CA SCREENING 1966 CT COLONOGRAPHY - COLON CA SCREENING 1966 Colorectal Cancer Screening 1966 FIT - COLON CA SCREENING 1966 FLEX SIG - COLON CA SCREENING 1966 LIPID TESTING 1966 HIV SCREENING 1981 HEPATITIS C SCREENING 05/27/1984 DTAP/TDAP/TD VACCINES (1 - Tdap) 1985 HEPATITIS B VACCINE (1 of 3 - 19+ 3-dose series) 1985 PNEUMOCOCCAL VACCINE 50+ (1 of 1 - PCV) 2016 ZOSTER VACCINE (1 of 2) 2016 DEPRESSION SCREENING 03/07/2024 COVID-19 VACCINE (1 - 2023-2 5 season) 2024 INFLUENZA VACCINE (#1) 2024 0, 01/05/2019, 12/23/2017 HIB VACCINE Aged Out No longer eligi ble based on patient's age to complete this topic HPV VACCINE Aged Out No longer eligi ble based on patient's age to complete this topic MENINGOCOCCAL (Group B) VACCINE SHARED DECISION-MAKING Aged Out No longer eligible based on patient's age to complete this topic MENINGOCOCCAL GROUPS A/C/Y/W VACCINE Aged Out No longer eligible b ased on patient's age to complete this topic Insurance ANTHEM
--- OUTSIDE RECORDS SUMMARY | 2024-12-19 00:59 | XMS_ITS | Clinical Summary ---
Author Organization [facility] Address [address] [place] [address] Care Team Providers Care Destination Sign Repairer Name Role Phone Chester Camacho MD Primary Care Provider [phone] Allergies No known active allergies Medications ALPRAZolam (XANAX) 0.25 mg tabletIndications :anxiety Take 1 tablet (0.25 mg total) by mouth 3 (three) times a day as needed for anxiety 15 tablet 3 Active albuterol HFA (PROVENTIL HFA,VENTOLIN HFA,PROAIR HFA) 90 mcg/actuation inhaler Inhale 2 puffs every 4 (four) hours as needed for wheezing for wheezing 8.5 g 2 4 Active enalapril (VASOTEC) 10 mg tablet Take 1 tablet (10 mg total) by mouth daily 90 tablet [address] (VOLTAREN) 75 mg EC tablet Take 1 tablet (75 mg total) by mouth 2 (two) times a day 180 tablet 5 Active beclomethasone dipropionate (Qvar RediHaler) 80 mcg/actuation inhaler INHALE 2 PUFFS BY MOUTH TWICE DAILY. RINSE MOUTH WITH WATER AFTER USE. DO NOT SWALLOW 10.6 g 3 5 Active metoprolol tartrate (LOPRESSOR) 25 mg immediate release tablet TAKE ONE-HALF (1/2) TABLET TWICE A DAY 90 tablet 3 5 Active atorvastatin (LIPITOR) 20 mg tablet Take 1 tablet (20 mg total) by mouth daily 90 tablet 2 5 Active escitalopram (LEXAPRO) 5 mg tablet Take 1 tablet (5 mg total) by mouth daily 90 tablet 2 5 Active Active Problems Problem Noted Date Diagnosed Date Family history of colon cancer 04/09/2024 Hypertension, essential 06/03/2022 Bronchitis 05/12/2021 Assessment & Plan (05/12/2021 3:49 PM CIGARETTE LIGHTER REPAIRER): Chest xray given length of symptoms ProAir PRN (reviewed use, technique and s/e) Breztri sample given Encounters Date Type Department Care Team Description 11/22/2024 Orders Only [facility] [address] [place] [phone] Meg Szymanski RMA Family history of colon cancer (Primary Dx) 11/22/2024 Telephone [facility] [address] [place] [phone] Chester Camacho MD 11/21/2024 Telephone [facility] [address] [place] [phone] Chester Camacho MD from Last 3 Months Immunizations Immunization Administration Dates Next Due Flucelvax Influenza Quad 02/05/2017 Influenza, Quadrivalent, Rec ombinant, Egg Free, Preservative Free, Intramuscular 12/23/2017 Influenza, Quadrivalent, Spl it, Intramuscular 01/02/2015 Influenza, Quadrivalent, Spl it, Preservative Free, Intramuscular 12/30/2020,11/14/2019,01/05/2019 Influenza, Trivalent, Preser vative Free, Intramuscular 01/22/2016,12/06/2015 Medical History Medical History Date Comments Asthma Hyperlipidemia Hypertension Arthritis Family History Medical History Relation Name Comments Cancer Father Family history of malignant neoplasm - (Added by TW Conv) Cancer Mother Family history of malignant neoplasm - (Added by TW Conv) Diabetes Mother Family history of diabetes mellitus - (Added by TW Conv) Relation Name Status Comments Father Mother Social History Tobacco Use Types Packs/Day Years Used Date Smoking Tobacco: Never Tobacco Cessation:Counseling Given: Not Answered Sex and Gender Information Value Date Recorded Sex Assigned at Not on file Legal Sex Male 7:46 PM CIGARETTE LIGHTER REPAIRER Gender Identity Not on file Sexual Orientation Not on file Obstetrics History Last Filed Vital Signs Vital Sign Reading Time Taken Comments Blood Pressure 146/91 04/09/2024 3:00 PM CIGARETTE LIGHTER REPAIRER Pulse 66 04/09/2024 3:00 PM CIGARETTE LIGHTER REPAIRER Temperature 36.6 C (97.9 F) 06/03/2022 10:15 AM CDT Respiratory Rate 12 06/03/2022 3:30 PM CDT Oxygen Saturation 97% 06/03/2022 3:30 PM CDT Inhaled Oxygen Concentration - - Weight 79.4 kg (175 lb) 04/09/2024 3:00 PM CIGARETTE LIGHTER REPAIRER Height 182.9 cm (6') 04/09/2024 3:00 PM CIGARETTE LIGHTER REPAIRER Body Mass Index 23.73 04/09/2024 3:00 PM CIGARETTE LIGHTER REPAIRER Plan of Treatment Scheduled Procedures Name Priority Associated Diagnoses Date/Ti me COLONOSCOPY Open Access Family history of colon cancer Health Maintenance Due Date Last Done Comments Depression Screening 1965 DTaP/Tdap/Td Vaccine (1 - Tdap) 1977 Hepatitis B Screening 1984 Covid-19 Vaccine (3 - season) 2024 05/09/2020, 04/11/2020 Influenza Vaccine (#1) 2024 , 11/14/2019, 01/05/2019, Additional history exists Regular Well Visit/Exam 18-64 04/09/2025 04/09/2024, 04/06/2023, 01/07/2022, Additional history exists Zoster Vaccine (1 of 2) 04/09/2025 Post poned from 2016 (Patient declined, but will receive in the future) Prostate Cancer Screening-PSA 04/09/2026 04/09/2024, 04/06/2023, 01/07/2022, Additional history exists Colon Cancer Screening-Colonoscopy 12/07/2029 12/08/2019 Colon Cancer Screening-CT Colonography Discontinued 12/08/2019 Colon Cancer Screening-DNA Stool Discontinued 12/08/2019 Colon Cancer Screening-FIT Discontinued 12/08/2019 Colon Cancer Screening-Sigmoidoscopy Discontinued 12/08/2019 Hepatitis C Screening Completed 04/09/2024 Pneumococcal vaccine <65 Aged Out No longer eligible based on patient's age to complete this topic Procedures Procedure Name Priority Date/Time Associated Diagnosis Comments HEPATITIS C ANTIBODY Routine 04/09/2024 4:28 PM CIGARETTE LIGHTER REPAIRER Mixed hyperlipidemia Family history of colon cancer Routine general medical examination at a health care facility Depression, unspecified depression type Hypertension, essential PSA SCREEN Routine 04/09/2024 4:28 PM CIGARETTE LIGHTER REPAIRER Mixed hyperlipidemia Family history of colon cancer Routine general medical examination at a health care facility Depression, unspecified depression type Hypertension, essential COLONOSCOPY Routine 12/08/2019 from Last 3 Months or Most Recently Relevant to Health Maintenance Results * PSA screen (04/09/2024 4:28 PM CIGARETTE LIGHTER REPAIRER) PSA-Total 0.91 <=3.90 ng/mL Comment: Interpretive Data AGE SEX REFERENCE INTERVAL 0 minutes-150 years Female None 0 minutes-49 years Male None 50-59 years Male 0-3.90 60-69 years Male 0-5.40 70-79 years Male 0-6.20 80-150 years Male 0-6.20 The Sandy PSA Total assay procedure was used. Results from different manufacturers or methods may not be comparable. Serial testing should be performed using the same method. Current interpretive data last revised 21. Blood 04/09/2024 4:28 PM CIGARETTE LIGHTER REPAIRER 04/09/2024 4:53 PM CIGARETTE LIGHTER REPAIRER us Chester Camacho MD LAB BLOOD ORDERABLES Final Re sult [facility] Department [place] [address] * Hepatitis C antibody Blood (04/09/2024 4:28 PM CIGARETTE LIGHTER REPAIRER) Hep C Ab Nonreactive Nonreactive Comment:Antibodies to HCV no t detected. Does NOT exclude the possibility of recent exposure to HCV. Current interpretive data was last revised on 21 Blood 04/09/2024 4:28 PM CIGARETTE LIGHTER REPAIRER 04/09/2024 4:53 PM CIGARETTE LIGHTER REPAIRER us Chester Camacho MD LAB MICROBIOLOGY - GENERAL OR DERABLES Final Result [facility] Department [place] [address] * Colonoscopy (12/08/2019) Anatomical Region Laterality Modality Other Narrative 12/08/2019 Pt reported this year colonoscopy repeat 5 years Historical Provider MD ENDOSCOPY PROCEDURES [place] Result from Last 3 Months or Most Recently Relevant to Health Maintenance Insurance [place] CHOICE OOS [employer] OOS [employer] CHOICE OOS [employer] OOS Care Teams Destination Sign Repairer Relationship Specialty Start Date End Date Chester Camacho MD PCP - General 07/01/16
[2024-12-19 10:01] VITALS: BP 153/91; PULSE 78; RESP 18; TEMP 36.4; O2SAT 99
[2024-12-19] MEDS: LACTATED RINGERS 1,000 ML 150 ML IV CONT (10:13)
--- NOTE | 2024-12-19 10:55 | WPDANESEPPF ---
Anes - Initial Pre Proc Eval Procedure: Operation Date: 12/19/24 11:00 Proposed Procedures p Screening Colonoscopy - Westley Galo MD Date/Time: 12/19/24 10:55 Surgeon: Westley Galo MD Pre Op Diagnosis: Family history of malignant neoplasm of digestive Patient Data Age: 59 Gender: M Height: 1.83 m Weight: 79.6 kg Last Vital Signs Temp 36.4 C 12/19/24 10:01 Pulse 78 12/19/24 10:01 Resp 18 12/19/24 10:01 BP 153/91 H 12/19/24 10:01 Pulse Ox 99 12/19/24 10:01 O2 Del Method Room Air 12/19/24 10:01 Allergies Allergy/AdvReac Type Severity Reaction Status Date / Time No Known Allergies Allergy Verified 12/19/24 09:59 Home Medications ?Medication ?Instructions ?Recorded ?Confirmed ?Type albuterol 90 mcg/actuation aerosol 90 mcg inhalation PRN PRN Wheezing 01/01/20 12/11/24 History inhaler atorvastatin 20 mg tablet 20 mg PO DAILY 01/01/20 12/19/24 History beclomethasone dipropionate 40 2 inh inhalation BID 01/01/20 12/19/24 History mcg/actuation HFA breath activated aerosol (Qvar RediHaler) enalapril maleate 10 mg tablet 10 mg PO DAILY 01/01/20 12/19/24 History albuterol sulfate 90 mcg/actuation 2 puff inhalation QID PRN 12/10/23 12/11/24 Rx aerosol inhaler shortness of breath or wheezing #8.5 grams prednisone 20 mg tablet 40 mg (2 x 20 mg) PO DAILY 4 days 12/10/23 12/11/24 Rx #8 tabs prednisone 50 mg tablet 50 mg PO DAILY #7 tabs 01/02/24 12/11/24 Rx metoprolol tartrate 25 mg tablet 12.5 mg PO BID 12/11/24 12/19/24 History escitalopram oxalate 5 mg tablet mg 12/19/24 History Patient hx anesthesia problems: none Family hx anesthesia problems: none Results Review: All pre-operative results and documents have been reviewed as part of the pre-operative evaluation. [facility] Past Medical History Medical History (Updated 01/03/24 @ 00:00 by Background Daemon) History of diverticulitis of colon Anxiety Asthma Hypertension Hyperlipidemia Migraine Surgical History Surgical History History of colonoscopy Last colonoscopy 12/2019 - findings of internal hemorrhoids and sigmoid diverticulosis. No pertinent past surgical history Family History Family History Father Cerebrovascular accident Hypertension Grandparent Diabetes mellitus Grandparent Family history of cardiovascular disease Mother Hypertension Other Family history of allergic disorder Social History Social History Smoking status: Never smoker Smoking end date: 03/07/89 Alcohol intake: current Drinks per week: 4 Alcohol use details: 1 DRINK PER MONTH Substance use: never Substance use type: does not use Living arrangements: with family Additional living arrangements comments: Lives with his . They have children that are grown and out of the household. 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 Gender identity (if verbalized by the patient): Male Spiritual care concerns: No Anes - Eval Final PreProcedure Day of Procedure 12/19/24 10:55 Patient weight: normal Heart: regular rate and rhythm Lungs: clear to auscultation and normal air movement Airway: Mallampati scale class II Neurological: alert and oriented Last oral intake: >/= 8 hours ASA classification: II Emergent: no Anesthetic plan: proceed Anesthesia type and monitoring: general GIVS and standard monitoring Results Review: All pre-operative results and documents have been reviewed as part of the pre-operative evaluation. Informed Consent: The patient's anesthetic plan and its attendant risks and benefits were discussed with the patient/family/POA. Questions were solicited and answers provided to the satisfaction of the patient/family/POA.
--- NOTE | 2024-12-19 11:17 | PM.IMHP ---
H&P: HPI History of Present Illness Date/Time: 12/19/24 11:17 Chief Complaint: Family history of colon cancer Narrative: This patient has family history of colorectal cancer. His mother was diagnosed with colon cancer at age 52. His last colonoscopy was 5 years ago, finding no polyps. However, he had polyps in previous colonoscopies. Review of Systems Review of Systems: All systems reviewed & are unremarkable except as noted in HPI and below PMFSH Past Medical History Medical History (Updated 12/19/24 @ 11:18 by Westley Galo MD) History of diverticulitis of colon Anxiety Asthma Hypertension Hyperlipidemia Migraine Surgical History Surgical History History of colonoscopy Last colonoscopy 12/2019 - findings of internal hemorrhoids and sigmoid diverticulosis. No pertinent past surgical history Family History Family History Father Cerebrovascular accident Hypertension Grandparent Diabetes mellitus Grandparent Family history of cardiovascular disease Mother Hypertension Other Family history of allergic disorder Social History Social History Smoking status: Never smoker Smoking end date: 03/07/89 Alcohol intake: current Drinks per week: 4 Alcohol use details: 1 DRINK PER MONTH Substance use: never Substance use type: does not use Living arrangements: with family Additional living arrangements comments: Lives with his . They have children that are grown and out of the household. 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 Gender identity (if verbalized by the patient): Male Spiritual care concerns: No Meds Home Medications and Allergies Home Medications ?Medication ?Instructions ?Recorded ?Confirmed ?Type albuterol 90 mcg/actuation aerosol 90 mcg inhalation PRN PRN Wheezing 01/01/20 12/11/24 History inhaler atorvastatin 20 mg tablet 20 mg PO DAILY 01/01/20 12/19/24 History beclomethasone dipropionate 40 2 inh inhalation BID 01/01/20 12/19/24 History mcg/actuation HFA breath activated aerosol (Qvar RediHaler) enalapril maleate 10 mg tablet 10 mg PO DAILY 01/01/20 12/19/24 History albuterol sulfate 90 mcg/actuation 2 puff inhalation QID PRN 12/10/23 12/11/24 Rx aerosol inhaler shortness of breath or wheezing #8.5 grams prednisone 20 mg tablet 40 mg (2 x 20 mg) PO DAILY 4 days 12/10/23 12/11/24 Rx #8 tabs prednisone 50 mg tablet 50 mg PO DAILY #7 tabs 01/02/24 12/11/24 Rx metoprolol tartrate 25 mg tablet 12.5 mg PO BID 12/11/24 12/19/24 History escitalopram oxalate 5 mg tablet mg 12/19/24 History Allergies Allergy/AdvReac Type Severity Reaction Status Date / Time No Known Allergies Allergy Verified 12/19/24 09:59 Vital Signs Vital Signs - 24 hr 12/19/24 10:01 Temperature 97.6 F Pulse Rate 78 Respiratory Rate 18 Blood Pressure 153/91 H Pulse Oximetry 99 Oxygen Delivery Room Air Exam Const: General: cooperative and healthy appearing Resp: Effort & Inspection: normal respiratory effort and able to speak in complete sentences Auscultation: clear to auscultation bilaterally Cardio: Rate: regular rate Rhythm: regular rhythm GI: Inspection: normal to inspection GI Palp: No No hepatosplenomegaly present Auscultation: normal bowel sounds Rectal Exam: deferred Skin: General skin exam: normal color Psych: Appearance: grossly normal Mental Status: mental status grossly normal Assessment and Plan Assessment and plan (1) Family history of colon cancer: Code(s): Z80.0 - Family history of malignant neoplasm of digestive organs Status: Acute Assessment and Plan: The patient is deemed a good candidate for the procedure. Consent signed. Will proceed.
[2024-12-19] MEDS: SIMETHICONE ORAL SUSPENSION 20 MG/0.3 ML 30 ML BOTTLE 0.6 ML IRRIGATION (11:30)
--- NOTE | 2024-12-19 11:45 | S_PTH ---
PATIENT: Thuan Morales Jr. LOC: [facility] #:[id number] AGE/SX: 59/M ROOM: RE12/19/[address]: Westley Galo MD : 1965 BED: DIS: 12/19/2024 SPEC #: [id number] RECD: 12/19/24 12:55 STATUS: KEISHA REQ #: [id number] MAYELIN: 12/19/24 11:[address]: Westley Galo DEPT: [facility] Surgical RECD BY: Keith Lopez ENTERED: 12/19/24 12:56 SP TYPE: Surgical OTHR DR: Chester CamachoMD Tissues: A - Colon Polypectomy B - Colon Polypectomy C - Colon Polypectomy Procedures: Hematoxylin and Eosin Stain Gross and Microscopic Level 4
[2024-12-19 11:53] VITALS: BP 129/83; PULSE 60; RESP 18; O2SAT 99
[2024-12-19 12:03] VITALS: BP 124/82; PULSE 62; RESP 20; O2SAT 100
[2024-12-19 12:13] VITALS: BP 133/91; PULSE 59; RESP 18; O2SAT 100
== END 2024-12-19 12:31 | disposition home or self-care (01) ==
PROVIDERS: PCP Internal Medicine; Referring Provider Internal Medicine; Visit Provider Internal Medicine Gastroenterology
PROC: 0DJD8ZZ Inspection of Lower Intestinal Tract, Via Natural or Artificial Opening Endoscopic (ICD-10-PCS; CPT 45378; principal; 2024-12-19 11:00)
DX: Z12.11 Encounter for screening for malignant neoplasm of colon (principal); D12.5 Benign neoplasm of sigmoid colon; D12.3 Benign neoplasm of transverse colon; D12.4 Benign neoplasm of descending colon; K64.8 Other hemorrhoids; K57.30 Diverticulosis of large intestine without perforation or abscess without bleeding; E78.5 Hyperlipidemia, unspecified; I10 Essential (primary) hypertension; J45.909 Unspecified asthma, uncomplicated; F41.9 Anxiety disorder, unspecified; Z79.51 Long term (current) use of inhaled steroids; Z79.52 Long term (current) use of systemic steroids; Z87.19 Personal history of other diseases of the digestive system; Z80.0 Family history of malignant neoplasm of digestive organs; Z82.49 Family history of ischemic heart disease and other diseases of the circulatory system
CPT/HCPCS: 45385; 88305; J2003; J2704; J7120